=== PATIENT | female | born 1965 | race Caucasian/White ===

== ENCOUNTER 2023-12-27 10:47 | Outpatient (CLI) | payer OTHER, SELFPAY ==
--- NOTE | ~2023-12-27 | MM_ITS ---
EXAMINATION: MM screening kali BI w gabrielle HISTORY: Screening TECHNIQUE: Craniocaudal and mediolateral oblique 3-D tomosynthesis images were obtained and synthetic 2-D images were generated. CAD analysis was submitted and interpreted. COMPARISON: No prior mammogram is available for comparison at this institution. BREAST PARENCHYMAL COMPOSITION: Dense: The breasts are heterogeneously dense, which may obscure small masses FINDINGS: There is no evidence of suspicious mass, calcification, or architectural distortion to sugg est malignancy in either breast. There has been no suspicious interval change. IMPRESSION: 1. No mammographic evidence of malignancy. 2. Recommend routine screening mammography in one year. BI-RADS Category 1: Negative Reviewed, dictated and finalized at location B.
== END 2023-12-27 10:48 | disposition home or self-care (01) ==
LOC: MICIMG 10:50
PROVIDERS: PCP Nurse Practitioner Women's Health; Visit Provider Nurse Practitioner Women's Health
DX: Z12.31 Encounter for screening mammogram for malignant neoplasm of breast (principal)
CPT/HCPCS: 77063; 77067

== ENCOUNTER 2024-01-24 10:02 | Outpatient (CLI) | payer OTHER, SELFPAY ==
--- NOTE | ~2024-01-24 | DEXA_ITS ---
Bone Density Report Name: DINO MARTINEZ Age: 58 Sex: Female Ethnicity: White Date of : 1965 Indication: postmenopausal; screening for osteoporosis; Referring Provider: LIO, DAVID Study: Bone densitometry was performed. Exam Date: January 24, 2024 Accession number: [id number] Bone Density: Region BMD T-score Z-score Classification AP Spine(L1-L4) 0.930 -1.1 0.3 Osteopenia Femoral Neck (Left) 0.713 -1.2 0.0 Osteopenia Total Hip (Left) 0.845 -0.8 0.1 Normal Femoral Neck (Right) 0.668 -1.6 -0.4 Osteopenia Total Hip (Right) 0.788 -1.3 -0.3 Osteopenia Total Hip Mean 0.816 -1.1 -0.1 Osteopenia World Health Organization criteria for BMD impression classify patients as: Normal (T-score at or above -1.0), Osteopenia (T-score between -1.0 and -2.5), or Osteoporosis (T-score at or below -2.5). 10-year Fracture Risk(1): Major Osteoporotic Fracture 8.2% Hip Fracture 0.8% Reported Risk Factors: [place] (), Neck BMD=0.668, BMI=24.0 (1) FRAX(R) Version 3.08. Fracture probability calculated for an untreated patient. Fracture probability may be lower if the patient has received treatment. Clinical Information Provided by Patient: Patient maximum height was 64.0 Onset of menses at age 10 Number of children 2 Impression: The patient has low bone mass, based on the Right Femoral Neck T-score. The patient has an estimated ten-year risk of hip fracture of 0.8% and an estimated ten-year risk of major fracture of 8.2%, based on the WHO FRAX algorithm. Discussion: BONE DENSITY IS LOW AT ONE OR MORE SKELETAL SITES. This patient's lowest T-score is low at one or more skeletal sites. It meets the World Health Organization's (WHO) criteria for ?low bone mass? (T-score between -1.0 and -2.5). The patient's 10-year risk of fracture as calculated by FRAX is less than the threshold where pharmacological therapy is recommended by the National Osteoporosis Foundation (NOF). However, all treatment decisions require clinical judgment and consideration of individual patient factors, including patient preferences, comorbidities, previous drug use, risk factors not captured in the FRAX model (e.g., frailty, falls, vitamin D deficiency, increased bone turnover, interval significant decline in bone density) and possible under or overestimation of fracture risk by FRAX. The patient should follow a healthful lifestyle (good nutrition with adequate calcium and vitamin D, and appropriate weight-bearing exercise). Follow-Up: Consider repeating this study in 2 to 3 years to reassess this patient's status, or sooner if there is some new clinical indication. Reported by: SHELLY on 01/24/2024 10:38:00 AM. Reviewed, dictated and finalized at location [facility]
== END 2024-01-24 10:03 | disposition home or self-care (01) ==
LOC: ANHIMG 10:10
PROVIDERS: PCP Nurse Practitioner Women's Health; Visit Provider Nurse Practitioner Women's Health
DX: M85.89 Other specified disorders of bone density and structure, multiple sites (principal); Z78.0 Asymptomatic menopausal state; Z13.820 Encounter for screening for osteoporosis
CPT/HCPCS: 77080

== ENCOUNTER 2024-02-16 01:19 | Day surgery (SDC) | payer OTHER, SELFPAY ==
[2024-02-12 10:47] VITALS: BMI 24.9
[2024-02-16 12:08] VITALS: BP 134/87; PULSE 67; RESP 20; TEMP 35.9; O2SAT 100; BMI 23.7
--- NOTE | 2024-02-16 12:20 | SUR.PREOP ---
Addressed with of patients mulitvitamin with iron that patient took monday02/13/24. said he's fine to go foward with procedure.
[2024-02-16] MEDS: LACTATED RINGERS 1,000 ML 150 ML IV CONT (12:37)
--- NOTE | 2024-02-16 12:38 | WPDANESEPPF ---
Anes - Initial Pre Proc Eval Procedure: Operation Date: 02/16/24 13:30 Proposed Procedures p Screening Colonoscopy - Saravanan Lynch MD Date/Time: 02/16/24 12:38 Surgeon: Saravanan Lynch MD Pre Op Diagnosis: screening colon Patient Data Age: 58 Gender: F Height: 1.63 m Weight: 62.7 kg Last Vital Signs Temp 35.9 C L 02/16/24 12:08 Pulse 67 02/16/24 12:08 Resp 20 02/16/24 12:08 BP 134/87 02/16/24 12:08 Pulse Ox 100 02/16/24 12:08 O2 Del Method Room Air 02/16/24 12:08 Allergies Allergy/AdvReac Type Severity Reaction Status Date / Time No Known Allergies Allergy Verified 02/16/24 12:13 Home Medications ?Medication ?Instructions ?Recorded ?Confirmed ?Type ytdsmcuqtely-Sp-fppy-minerals 18 1 tablet PO DAILY 02/12/24 02/16/24 History mg-0.4 mg tablet Patient hx anesthesia problems: none Family hx anesthesia problems: none Results Review: All pre-operative results and documents have been reviewed as part of the pre-operative evaluation. [facility] Surgical History Surgical History (Updated 02/16/24 @ 12:39 by Reynaldo Ravi MD) History of tubal ligation History of section Social History Social History Smoking status: Never smoker Alcohol intake: current Substance use: never Living arrangements: with family Spiritual care concerns: No Anes - Eval Final PreProcedure Day of Procedure 02/16/24 12:38 Patient weight: normal Heart: regular rate and rhythm Lungs: clear to auscultation Airway: Mallampati scale class II Neurological: alert and oriented Last oral intake: >/= 8 hours ASA classification: I Emergent: no Anesthetic plan: proceed Anesthesia type and monitoring: general GIVS and standard monitoring Results Review: All pre-operative results and documents have been reviewed as part of the pre-operative evaluation. Informed Consent: The patient's anesthetic plan and its attendant risks and benefits were discussed with the patient/family/POA. Questions were solicited and answers provided to the satisfaction of the patient/family/POA.
--- NOTE | 2024-02-16 12:49 | PM.IMHP ---
H&P: HPI History of Present Illness Date/Time: 02/16/24 12:49 Chief Complaint: Screening colonoscopy Narrative: This is the patient's 2nd colonoscopy after 10 years. She is also complaining of persistent, daily episodes of right lower quadrant pain, sharp in nature, sometimes moderate to severe. Review of Systems Review of Systems: All systems reviewed & are unremarkable except as noted in HPI and below PMFSH Surgical History Surgical History (Updated 02/16/24 @ 12:39 by Reynaldo Ravi MD) History of tubal ligation History of section Social History Social History Smoking status: Never smoker Alcohol intake: current Substance use: never Living arrangements: with family Spiritual care concerns: No Meds Home Medications and Allergies Home Medications ?Medication ?Instructions ?Recorded ?Confirmed ?Type ruycheczflzi-Hm-xaph-minerals 18 1 tablet PO DAILY 02/12/24 02/16/24 History mg-0.4 mg tablet Allergies Allergy/AdvReac Type Severity Reaction Status Date / Time No Known Allergies Allergy Verified 02/16/24 12:13 Vital Signs Vital Signs - 24 hr 02/16/24 12:08 Temperature 96.7 F L Pulse Rate 67 Respiratory Rate 20 Blood Pressure 134/87 Pulse Oximetry 100 Oxygen Delivery Room Air Exam Const: General: cooperative and healthy appearing Resp: Effort & Inspection: normal respiratory effort and able to speak in complete sentences Auscultation: clear to auscultation bilaterally Cardio: Rate: regular rate Rhythm: regular rhythm GI: Inspection: normal to inspection GI Palp: No No hepatosplenomegaly present Auscultation: normal bowel sounds Rectal Exam: deferred Skin: General skin exam: normal color Psych: Appearance: grossly normal Mental Status: mental status grossly normal Assessment and Plan Assessment and plan (1) Screening for colorectal cancer: Code(s): Z12.11 - Encounter for screening for malignant neoplasm of colon; Z12.12 - Encounter for screening for malignant neoplasm of rectum Status: Acute Assessment and Plan: The patient is deemed a good candidate for the procedure. Consent signed. Will proceed.
[2024-02-16 13:12] VITALS: BP 87/45; PULSE 68; RESP 18; O2SAT 97
[2024-02-16 13:22] VITALS: BP 110/58; PULSE 77; RESP 18; O2SAT 100
[2024-02-16 13:32] VITALS: BP 123/56; PULSE 60; RESP 19; O2SAT 100
== END 2024-02-16 13:46 | disposition home or self-care (01) ==
PROVIDERS: PCP Nurse Practitioner Women's Health; Visit Provider Internal Medicine Gastroenterology
PROC: 0DJD8ZZ Inspection of Lower Intestinal Tract, Via Natural or Artificial Opening Endoscopic (ICD-10-PCS; CPT 45378; principal; 2024-02-16 13:30)
DX: Z12.11 Encounter for screening for malignant neoplasm of colon (principal); Z98.890 Other specified postprocedural states; Z98.51 Tubal ligation status
CPT/HCPCS: 45378; J2003; J2704; J7120